=== PATIENT | female | born 1990 | race Caucasian/White ===

== ENCOUNTER 2018-07-19 17:33 | Emergency (ER) | payer SELFPAY ==
[~2018-07-19] VITALS: Ht 167.6 cm; Wt 68.0 kg
[2018-07-19 19:55] LABS: BASOPHILS % 0.2 % (0.0-2.0); EOSINOPHILS % 0.3 % (0.0-5.0); HEMATOCRIT. 39.8 % (36.0-48.0); HEMOGLOBIN. 13.2 g/dL (12.0-16.0); LYMPHOCYTES % 14.7 % (20.0-50.0); MEAN CORPUSCULAR HEMOGLOBIN 28.6 pg (28.0-32.0); MEAN CORPUSCULAR VOLUME 86.2 fL (81.0-99.0); MONOCYTES % 6.4 % (2.0-8.0); NEUTROPHILS % 78.4 % (40.0-76.0); PLATELET 274 x1000/uL (130-400); RED BLOOD CELL COUNT 4.62 mill/uL (4.2-5.4); RED CELL DISTRIBUTION WIDTH 15.5 % (11.6-14.6)
[2018-07-19 19:56] LABS: CHLORIDE 103 mEq/L (98-107)
[2018-07-19 20:17] LABS: CLARITY URINE CLOUDY (CLEAR); COLOR URINE DARK YELLOW (YELLOW); KETONES URINE TRACE (NEGATIVE); LEUKOCYTE ESTERASE URINE NEGATIVE (NEGATIVE); NITRITE URINE NEGATIVE (NEGATIVE); OCCULT BLOOD URINE TRACE (NEGATIVE); PH URINE 5.5 (4.5-8.0); PROTEIN URINE 1+ (NEGATIVE); SPECIFIC GRAVITY URINE 1.034 (1.005-1.030); UROBILINOGEN URINE 0.2 E.U./dL (0.2-1.0)
[2018-07-19] MEDS ORDERED: IBUPROFEN 600MG TABLET PO STA (20:52)
[2018-07-19] MEDS ORDERED: VISCOUS LIDOCAINE 2% 15 ML UDC PO STA (20:52)
[2018-07-19 22:01] VITALS: BP 133/79
== END 2018-07-19 22:12 | disposition home or self-care (01) ==
LOC: ER 17:33
DX: J02.9 Acute pharyngitis, unspecified (principal); F17.200 Nicotine dependence, unspecified, uncomplicated; Z98.890 Other specified postprocedural states
CPT/HCPCS: 36415; 70360; 80053; 81003; 81025; 85025; 99285; Z7610

== ENCOUNTER 2018-07-20 03:32 | Emergency (ER) | payer SELFPAY ==
[~2018-07-20] VITALS: Ht 167.6 cm; Wt 91.0 kg
[2018-07-20] MEDS ORDERED: DEXAMETHASONE 10 MG/ML VIAL IM ONE (06:45)
[2018-07-20 07:02] VITALS: BP 104/64
== END 2018-07-20 07:04 | disposition home or self-care (01) ==
LOC: ER 03:32
DX: J02.9 Acute pharyngitis, unspecified (principal); F17.200 Nicotine dependence, unspecified, uncomplicated
CPT/HCPCS: 96372; 99283; J1100; Z7610